=== PATIENT | female | born 1955 | race Caucasian/White ===

== ENCOUNTER 2017-12-20 14:37 | Emergency (ER) | payer OTHER ==
[~2017-12-20 14:37] MED LIST: FIORIC PO; FLEX10TA PO; HYDR-2768 PO; LACTCAP7 PO; OXCA300T2 PO; SIMV5TAB32 PO; SUMA50TA2 PO; SYNT25TA PO; TRAM50TA PO; VENL75 PO; XANA0.5T
[2017-12-20] MEDS ORDERED: SODIUM CHLOR 0.9% 1000 ML INJ 1,000 ML IV SCH (14:50)
[2017-12-20 14:55] VITALS: BP 149/89; PULSE 102; RESP 18; TEMP 97.7; O2SAT 98
[2017-12-20] MEDS ORDERED: SODIUM CHLORIDE 0.9% FLUSH 10 ML FLUSH IVF PRN (15:00)
[2017-12-20] MEDS ORDERED: DIPHTH/TETANUS/ACEL PERTUSSIS (BOOSTER) 0.5 ML VIAL/PFS IM ONE (15:00)
[2017-12-20] MEDS ORDERED: ONDANSETRON HCL 4 MG/2 ML VIAL IV PUSH ONE (15:00)
[2017-12-20] MEDS ORDERED: MORPHINE SULFATE 4 MG/ML INJ IV PUSH ONE ×2 (15:00→17:00)
[2017-12-20] MEDS ORDERED: ceFAZolin 2 GM PREMIX 50 ML IV ONE (15:00)
[2017-12-20] MEDS ORDERED: LIDOCAINE HCL 2% PF SOLN 10 ML VIAL ONE (15:01)
[2017-12-20 15:03] VITALS: BP 149/89; PULSE 104; RESP 20; TEMP 97.7; O2SAT 98
--- NOTE | 2017-12-20 16:15 | RADRPT ---
EXAM DATE/TIME: 12/20/2017 15:30 [facility] COMPARISON: No previous studies available for comparison. INDICATIONS : Chest pain. MEDICAL HISTORY : None. SURGICAL HISTORY : None. ENCOUNTER: Initial ACUITY: 1 day PAIN SCORE: 10/10 LOCATION: Left lower chest FINDINGS: Portable AP view of the chest demonstrates a normal-sized cardiac silhouette. No effusion, consolidat ion, or pneumothorax is visualized. The bones and soft tissues demonstrate no acute abnormality. EKG lines overlie the chest and lungs are underinflated. CONCLUSION: No acute cardiopulmonary abnormality is identified. Eder Santos MD on December 20, 2017 at 16:12 Board Certified Radiologist. This report was verified electronically.
[2017-12-20 16:16] LABS: AUTOMATED NEUTROPHIL # 27.2 TH/MM3 (1.8-7.7); BASOPHIL # 0.1 TH/MM3 (0-0.2); BASOPHIL % 0.3 % (0.0-2.0); EOSINOPHIL % 0.1 % (0.0-4.0); HEMATOCRIT 39.3 % (35.0-46.0); HEMOGLOBIN 13.7 GM/DL (11.6-15.3); LYMPH % 3.3 % (9.0-44.0); MEAN CORPUSCULAR HEMOGLOBIN 31.4 PG (27.0-34.0); MEAN CORPUSCULAR HGB CONC 34.9 % (32.0-36.0); MEAN PLATELET VOLUME 8.4 FL (7.0-11.0); MONO % 8.6 % (0.0-8.0); MONOCYTE # 2.7 TH/MM3 (0-0.9); NEUT % 87.7 % (16.0-70.0); PLATELET COUNT 302 TH/MM3 (150-450); RED BLOOD COUNT 4.36 MIL/MM3 (4.00-5.30); WHITE BLOOD COUNT 31.1 TH/MM3 (4.0-11.0)
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
[2017-12-20 16:33] LABS: PROTHROMBIN TIME - PATIENT 10.1 SEC (9.8-11.6)
--- NOTE | 2017-12-20 16:40 | RADRPT ---
EXAM DATE/TIME: 12/20/2017 16:13 [facility] COMPARISON: HAND LEFT COMPLETE ([id number]), December 20, 2017, 15:39. INDICATIONS : Post reduction left hand, fifth digit. MEDICAL HISTORY : None. SURGICAL HISTORY : None. ENCOUNTER: Subsequent ACUITY: 1 day PAIN SCORE: Non-responsive. LOCATION: Left hand, fifth digit. FINDINGS: Interval reduction of the fifth proximal interphalangeal joint. There is now anatomic alignment of th e fifth phalanges. No acute fracture. Remainder of the exam is unchanged. CONCLUSION: 1. Status post reduction of the fifth digit PIP joint dislocation with anatomic alignment and no acut e fracture. Loco Lara MD on December 20, 2017 at 16:36 Board Certified Radiologist. This report was verified electronically.
[2017-12-20 16:42] LABS: BICARBONATE 22.6 MEQ/L (21.0-32.0); CALCIUM 8.8 MG/DL (8.5-10.1); CREATININE 1.09 MG/DL (0.50-1.00)
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
[2017-12-20 17:13] LABS: BANDS 3 % (0-6); LYMPHOCYTES 5 % (9-44); MONOCYTES 6 % (0-8); NEUTROPHIL # MANUAL DIFF 27.7 TH/MM3 (1.8-7.7); POLYS (SEG NEUTROPHILS) 86 % (16-70)
[2017-12-20] MEDS ORDERED: IOHEXOL 350 MG/ML 10 ML VIAL (for RAD DIAG) IVCONTRAST ONE (17:24)
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
[2017-12-20] MEDS ORDERED: MOBI15TA PO (18:31)
--- NOTE | 2017-12-20 18:31 | PD ---
Physical Exam Narrative Patient was seen by ED physician and signed out to me. Data Data Last Documented VS Vital Signs Date Time Temp Pulse Resp B/P (MAP) Pulse Ox O2 Delivery O2 Flow Rate FiO2 12/20/17 17:19 18 12/20/17 15:03 98 Room Air 12/20/17 15:03 97.7 104 149/89 (109) Orders Orders Basic Metabolic Panel (Bmp) (12/20/17 14:50) Complete Blood Count With Diff (12/20/17 14:50) Prothrombin Time / Inr (Pt) (12/20/17 14:50) Chest, Single Ap (12/20/17 14:50) Ct Brain W/O Iv Contrast(Rout) (12/20/17 14:50) Ct Cerv Spine W/O Contrast (12/20/17 14:50) Ct Abd/Pel W Iv Contrast(Rout) (12/20/17 14:50) Ct Thorax/ Chest W Iv Contrast (12/20/17 14:50) Ct Facial Bones W/O Iv Cont (12/20/17 14:50) Iv Access Insert/Monitor (12/20/17 14:50) Ecg Monitoring (12/20/17 14:50) Oximetry (12/20/17 14:50) Oxygen Administration (12/20/17 14:50) Cefazolin 2 Gm Premix (Ancef 2 Gm Premix (12/20/17 15:00) Morphine Inj (Morphine Inj) (12/20/17 15:00) Ondansetron Inj (Zofran Inj) (12/20/17 15:00) Bauy-Cfw-Uvwdco (Booster) Inj (Boostrix (12/20/17 15:00) Sodium Chlor 0.9% 1000 Ml Inj (Ns 1000 M (12/20/17 14:50) Sodium Chloride 0.9% Flush (Ns Flush) (12/20/17 15:00) Hand, Complete (Key2mju) (12/20/17 ) Shoulder, Complete (>2vws) (12/20/17 ) Lidocaine Pf 2% Inj (Xylocaine-Mpf 2% In (12/20/17 15:01) Finger (Ryb0ddr) (12/20/17 ) Morphine Inj (Morphine Inj) (12/20/17 17:00) Labs Laboratory Tests Test 12/20/17 15:40 White Blood Count 31.1 TH/MM3 Red Blood Count 4.36 MIL/MM3 Hemoglobin 13.7 GM/DL Hematocrit 39.3 % Mean Corpuscular Volume 90.0 FL Mean Corpuscular Hemoglobin 31.4 PG Mean Corpuscular Hemoglobin Concent 34.9 % Red Cell Distribution Width 13.0 % Platelet Count 302 TH/MM3 Mean Platelet Volume 8.4 FL Neutrophils (%) (Auto) 87.7 % Lymphocytes (%) (Auto) 3.3 % Monocytes (%) (Auto) 8.6 % Eosinophils (%) (Auto) 0.1 % Basophils (%) (Auto) 0.3 % Neutrophils # (Auto) 27.2 TH/MM3 Lymphocytes # (Auto) 1.0 TH/MM3 Monocytes # (Auto) 2.7 TH/MM3 Eosinophils # (Auto) 0.0 TH/MM3 Basophils # (Auto) 0.1 TH/MM3 CBC Comment AUTO DIFF Differential Total Cells Counted 100 Neutrophils % (Manual) 86 % Band Neutrophils % 3 % Lymphocytes % 5 % Monocytes % 6 % Neutrophils # (Manual) 27.7 TH/MM3 Differential Comment FINAL DIFF MANUAL Prothrombin Time 10.1 SEC Prothromb Time International Ratio 1.0 RATIO Blood Urea Nitrogen 22 MG/DL Creatinine 1.09 MG/DL Random Glucose 157 MG/DL Calcium Level 8.8 MG/DL Sodium Level 142 MEQ/L Potassium Level 3.8 MEQ/L Chloride Level 109 MEQ/L Carbon Dioxide Level 22.6 MEQ/L Anion Gap 10 MEQ/L Estimat Glomerular Filtration Rate 51 ML/MIN [facility] Supervised Visit with INDER: No Interpretation(s) [address] and x-ray shows no acute bony injury. Chronic descending aortic dissection. Diagnosis Primary Impression: Facial contusion Qualified Codes: S00.83XA - Contusion of other part of head, initial encounter Additional Impressions: Subconjunctival hemorrhage Qualified Codes: H11.32 - Conjunctival hemorrhage, left eye Dislocation of fifth finger, metacarpal joint, proximal, left, closed Chest wall contusion Qualified Codes: S20.212A - Contusion of left front wall of thorax, initial encounter Patient Instructions: General Instructions Additional Instruction: Take medications as needed for pain. 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 Following with orthopedist. Finger splint applied now. Med/Other Pt SpecificInfo: Prescription(s) given Scripts Meloxicam (Mobic) 15 Mg Tab 15 MG PO DAILY for Pain, #20 TAB 0 Refills Prov: Carlos Kramer MD 12/20/17 Disposition: 01 DISCHARGE HOME Condition: Stable Carlos Kramer MD Dec 20, 2017 18:31
[2017-12-20 18:45] VITALS: BP 142/78; PULSE 80; RESP 18; O2SAT 98
== END 2017-12-20 19:26 | disposition home or self-care (01) ==
LOC: NEPD 14:37
DX: S63.287A Dislocation of proximal interphalangeal joint of left little finger, initial encounter (principal); S20.212A Contusion of left front wall of thorax, initial encounter; H11.32 Conjunctival hemorrhage, left eye; S00.83XA Contusion of other part of head, initial encounter; M25.512 Pain in left shoulder; R55 Syncope and collapse; Z23 Encounter for immunization; Y04.2XXA Assault by strike against or bumped into by another person, initial encounter; Y92.59 Other trade areas as the place of occurrence of the external cause
CPT/HCPCS: 26770; 70450; 70486; 71045; 71260; 72125; 73030; 73130; 73140; 74177; 80048; 85007; 85027; 85610; 90471; 90715; 96361; 96365; 96375; 96376; 99285; J0690; J2270; J2405; J7030; Q9967